=== PATIENT | male | born 1960 | race Caucasian/White ===

== ENCOUNTER 2018-05-26 09:14 | Emergency (ER) | payer OTHER ==
--- NOTE | 2018-05-26 09:31 | EDPHY ---
HPI/HX/ROS/PE/MDM Narrative: CHIEF COMPLAINT: Vomiting, abdominal pain. HPI: This patient is a 57 year old male with history of chronic pancreatitis, esophageal varices. He complains of two days of nausea and vomiting. He endorses associated abdominal pain, diarrhea. This morning he had an episode of coffee ground emesis. He denies hematochezia or melena. The patient states his symptoms are similar to prior episodes of pancreatitis. He denies any recent alcohol use. He has been unable to follow up at the [facility] due to difficulty scheduling an appointment. No chest pain, shortness of breath, fever, or other associated symptoms. REVIEW OF SYSTEMS: A comprehensive 10 system review of systems is otherwise negative aside from elements mentioned in the history of present illness and medical decision making. PMH: Chronic pancreatitis secondary to history of alcohol abuse. Esophageal varices. Hepatitis C. History of TIA. SOCIAL HISTORY: Generally follows up at [facility]. . Recently moved from [place]. PHYSICAL EXAM: General:Patient is alert, in no acute distress. ENT:Eyes are normal to inspection. ENT inspection normal. Neck: Normal inspection. Full range of motion. Respiratory:No respiratory distress. Breath sounds normal bilaterally. Cardiovascular: Regular rate and rhythm. Strong peripheral pulses. Normal cap refill. Abdomen:The abdomen is diffusely tender. There are no peritoneal signs. There are normal bowel sounds. Back: Normal to inspection. No tenderness to palpation. Skin: Normal color. No rash. Warm and dry. Extremities: Normal appearance. Full range of motion. Neuro: Oriented x3. Normal motor function. Normal sensory function. ED Course: 57 y/o male with history of chronic pancreatitis and esophageal varices presents with two day history of vomiting and abdominal pain with an episode of reported coffee-ground emesis this morning. Plan for labs including CBC, chemistries, liver, lipase, coag panel, type and screen. IV established. Plan to administer 1mg IV Dilaudid, 4mg IV Zofran, 1L IV NS for symptom relief. Laboratory studies largely unremarkable. Reassessed patient. He is feeling improved following fluids and medication administration. He has tolerated a PO challenge. Discussed laboratory results. Plan to discharge home in good condition with prescription for Zofran for nausea. Follow up and return precautions discussed. He is comfortable with this plan. MDM: This patient presents with recurrent epigastric pain that feels like recurrence of chronic pancreatitis. I see no signs of active GI bleed. Lipase is normal. Patient is now tolerating PO without difficulty. He has asked for a prescription for pain medication, but we discussed fact that he would need to return to ED if pain returns as this may be sign of serious disease. He declined further testing. - Data Points Laboratory Results: Laboratory Results 05/26/18 09:55 05/26/18 09:55 05/26/18 05/26/18 05/26/18 09:55 09:55 09:55 WBC RBC Hgb Hct MCV MCH MCHC RDW Plt Count MPV Neut % (Auto) Lymph % (Auto) [place] % (Auto) Eos % (Auto) Baso % (Auto) Nucleat RBC Rel Count Absolute Neuts (auto) Absolute Lymphs (auto) Absolute Monos (auto) Absolute Eos (auto) Absolute Basos (auto) Absolute Nucleated RBC Immature Gran % Immature Gran # PT 13.4 SEC SEC (12.0-15.0) INR 1.00 (0.83-1.16) APTT 30.8 SEC SEC (23.0-38.0) Sodium 135 mEq/L mEq/L (135-145) Potassium 4.3 mEq/L mEq/L (3.5-5.2) Chloride 104 mEq/L mEq/L (97-110) Carbon Dioxide 22 mEq/l mEq/l (22-31) Anion Gap 9 mEq/L mEq/L (6-14) BUN 12 mg/dL mg/dL (7-23) Creatinine 0.7 mg/dL mg/dL (0.7-1.3) Estimated GFR > 60 Glucose 97 mg/dL mg/dL (70-100) Calcium 9.4 mg/dL mg/dL (8.5-10.4) Total Bilirubin 0.5 mg/dL mg/dL (0.1-1.4) Conjugated Bilirubin 0.4 mg/dL mg/dL (0.0-0.5) Unconjugated Bilirubin 0.1 mg/dL mg/dL (0.0-1.1) AST 47 IU/L IU/L (17-59) ALT 49 IU/L IU/L (21-72) Alkaline Phosphatase 119 IU/L IU/L (38-126) Total Protein 8.6 g/dL H g/dL (6.3-8.2) Albumin 4.5 g/dL g/dL (3.5-5.0) Lipase 144 IU/L IU/L (23-300) Patient ABO/Rh O NEGATIVE Antibody Screen NEGATIVE 05/26/18 09:55 WBC 12.01 10^3/uL H 10^3/uL (3.80-9.50) RBC 4.39 10^6/uL L 10^6/uL (4.40-6.38) Hgb 12.8 g/dL L g/dL (13.7-17.5) Hct 38.3 % L % (40.0-51.0) MCV 87.2 fL fL (81.5-99.8) MCH 29.2 pg pg (27.9-34.1) MCHC 33.4 g/dL g/dL (32.4-36.7) RDW 13.5 % % (11.5-15.2) Plt Count 377 10^3/uL 10^3/uL (150-400) MPV 8.0 fL L fL (8.7-11.7) Neut % (Auto) 72.7 % % (39.3-74.2) Lymph % (Auto) 15.5 % % (15.0-45.0) [place] % (Auto) 10.3 % % (4.5-13.0) Eos % (Auto) 0.9 % % (0.6-7.6) Baso % (Auto) 0.3 % % (0.3-1.7) Nucleat RBC Rel Count 0.0 % % (0.0-0.2) Absolute Neuts (auto) 8.72 10^3/uL H 10^3/uL (1.70-6.50) Absolute Lymphs (auto) 1.86 10^3/uL 10^3/uL (1.00-3.00) Absolute Monos (auto) 1.24 10^3/uL H 10^3/uL (0.30-0.80) Absolute Eos (auto) 0.11 10^3/uL 10^3/uL (0.03-0.40) Absolute Basos (auto) 0.04 10^3/uL 10^3/uL (0.02-0.10) Absolute Nucleated RBC 0.00 10^3/uL 10^3/uL (0-0.01) Immature Gran % 0.3 % % (0.0-1.1) Immature Gran # 0.04 10^3/uL 10^3/uL (0.00-0.10) PT INR APTT Sodium Potassium Chloride Carbon Dioxide Anion Gap BUN Creatinine Estimated GFR Glucose Calcium Total Bilirubin Conjugated Bilirubin Unconjugated Bilirubin AST ALT Alkaline Phosphatase Total Protein Albumin Lipase Patient ABO/Rh Antibody Screen Medications Given: Discontinued Medications Hydromorphone HCl (Dilaudid) 1 mg IVP EDNOW ONE Stop: 05/26/18 10:11 Last Admin: 05/26/18 10:26 Dose: 1 mg Sodium Chloride (Ns) 1,000 mls @ 0 mls/hr IV EDNOW ONE; Wide Open PRN Reason: Protocol Stop: 05/26/18 09:49 Last Admin: 05/26/18 10:25 Dose: 1,000 mls Ondansetron HCl (Zofran) 4 mg IVP EDNOW ONE Stop: 05/26/18 10:11 Last Admin: 05/26/18 10:26 Dose: 4 mg General Time Seen by Provider: 05/26/18 09:24 Initial Vital Signs: Initial Vital Signs Temperature (C) 36.7 C 05/26/18 09:18 Heart Rate 104 H 05/26/18 09:18 Respiratory Rate 18 05/26/18 09:18 Blood Pressure 121/82 H 05/26/18 09:18 O2 Sat (%) 98 05/26/18 09:18 O2 Delivery Mode Room Air O2 (L/minute) 2 Allergies/Adverse Reactions: paroxetine [From Paxil] Allergy (Verified 05/27/18 11:36) propofol Allergy (Verified 05/27/18 11:36) Home Medications: Medication Instructions Recorded Ondansetron Odt [Zofran Odt] 4 mg PO Q4PRN PRN #10 tab 05/26/18 Albuterol [Proventil Inhaler HFA 2 puffs IH Q4 PRN #1 mdi 05/27/18 (*)] Ibuprofen 400 mg PO Q6 PRN #20 tablet 05/27/18 Ondansetron Odt [Zofran Odt 4 mg 4 mg PO Q8 PRN #10 tab 05/27/18 (*)] Departure - Departure Disposition: Home, Routine, Self-Care Clinical Impression: Abdominal pain, Nausea & vomiting Condition: Good Instructions: Acute Nausea and Vomiting (ED), Abdominal Pain (ED) Additional Instructions: Take Zofran as prescribed as needed for nausea. Follow up with your primary care provider . Return for uncontrollable vomiting or diarrhea, high fever, blood in your emesis or stool, or other worsening of condition. Referrals: Nicole Son MD [Medical Doctor] - As per Instructions Prescriptions: Ondansetron Odt [Zofran Odt] 4 mg PO Q4PRN PRN #10 tab PRN Reason: Nausea Report Scribed for: Cezar Jacobs Report Scribed by: Mona Parks Date of Report: 05/26/18 Time of Report: 10:04 Physician Review and Approval Statement: Portions of this note were transcribed by an ED scribe. I personally performed the history, physical exam, and medical decision making; and confirm the accuracy of the information in the transcribed note.
[2018-05-26] MEDS ORDERED: NS 1,000 ML IV ONE (09:48)
[2018-05-26 10:00] LABS: PLATELET COUNT 377 10^3/uL (150-400)
[2018-05-26] MEDS ORDERED: HYDROmorphONE/DILAUDID 2 MG/ML INJ IVP ONE (10:10)
[2018-05-26] MEDS ORDERED: ONDANSETRON 4 MG/2 ML VIAL IVP ONE (10:10)
[2018-05-26 10:14] LABS: PROTIME(PATIENT) 13.4 SEC (12.0-15.0)
[2018-05-26 12:54] VITALS: BP 139/72
== END 2018-05-26 12:52 | disposition home or self-care (01) ==
DX: R10.0 Acute abdomen (principal); R11.2 Nausea with vomiting, unspecified; K86.1 Other chronic pancreatitis; E86.9 Volume depletion, unspecified
CPT/HCPCS: 96361; 96374; 96375; 99284; J1170; J2405

== ENCOUNTER 2018-05-27 11:33 | Emergency (ER) | payer OTHER ==
--- NOTE | 2018-05-27 12:24 | EDPHY ---
General - History Smoking Status: Heavy smoker Time Seen by Provider: 05/27/18 12:00 Narrative: CLINICAL IMPRESSION: Shortness of breath, cough, abdominal pain, nausea, vomiting, diarrhea ASSESSMENT/PLAN: Patient is a 57-year-old male with a significant history of TIA, coronary artery disease, peripheral neuropathy, esophageal varices and alcohol-induced pancreatitis who presents to the emergency department with escalating and worsening nausea, vomiting, abdominal pain, cough and shortness of breath. Patient is afebrile, in mild distress however not toxic appearing. An ECG was obtained and revealed normal sinus rhythm, no evidence of acute ischemia. His abdomen was soft, generalized upper abdominal tenderness, most tender in the epigastrium without peritoneal signs. CBC revealed mild leukocytosis, improved from previous visit. BMP revealed no significant metabolic abnormality or evidence of a KI. Lipase and hepatic panel grossly unremarkable, no evidence of acute pancreatitis or acute hepatobiliary obstruction. D-dimer elevated at 0.8 , troponin negative. Chest x-ray with findings suggestive of airway disease, no consolidation. CT a chest without evidence of PE, findings suggestive of underlying emphysema without other acute findings. CT abdomen and pelvis revealed constipation, no findings to suggest acute pancreatitis or other acute intra-abdominal process. Overall the patient had a very extensive workup in the emergency department that was very reassuring. I suspect his shortness of breath secondary to a viral illness, there was no evidence of PE, ACS or pneumonia. He was given an albuterol neb with improvement of his symptoms. In regards to his abdominal pain, nausea, vomiting and diarrhea I also suspect that this is viral in nature. There were no clinical findings to suggest appendicitis, cholecystitis , kidney stone, pancreatitis, perforated viscus, diverticulitis, testicular torsion, epididymitis, hernia, AAA, mesenteric ischemia, or additional emergent intra-abdominal process. He was given IV fluids and narcotic with improvement of his symptoms. He was initially noted to have a mildly elevated heart rate which normalized to 89 prior to discharge. No findings to suggest sepsis or serious bacterial illness. On repeat examination the patient is much more comfortable appearing, he is very reassured by his workup. [facility] and understands the importance of close follow-[facility]. Strict return precautions discussed- he will return for increased or unmanageable pain, increased shortness of breath, fever, worsening or localized abdominal pain, chest pain, or for any other new, worsening or worrisome symptoms. Patient verbalizes understanding and he is in agreement with this plan. DIFFERENTIAL DX: Abdominal pain including but not limited to appendicitis, cholecystitis, gastritis and urinary tract infection. ED COURSE: 1218: Case discussed with Dr. Rivero CHIEF COMPLAINT: Fever, cough, shortness of breath, nausea, vomiting, diarrhea and abdominal pain HPI: Patient is a 57-year-old male with a significant history of TIA, coronary artery disease, peripheral neuropathy, esophageal varices and alcohol-induced pancreatitis who presents to the emergency department with escalating and worsening nausea, vomiting and abdominal pain. Patient reports that he was seen and evaluated yesterday for similar symptoms, has been unable to keep anything down is having worsening abdominal pain. Patient endorses subjective fever 2 nights ago, for the last 3 days he has had a cough and some increased shortness of breath. He states this feels similar to when he has had pneumonia in the past. He denies any earache, sore throat, runny nose or congestion. Patient also discloses abdominal pain for the last several days which feels very similar to when he has had exacerbations with his pancreatitis in the past. He describes it as sharp and constant. He has had associated nausea, he is unable to vomit secondary to not being able to keep anything down. He has had increased diarrhea over the last several days, no melena or hematochezia. Patient reports that he has not had alcohol since April 21. Patient denies any testicular pain or swelling, he has had no urinary symptoms. PMH: TIA, coronary artery disease, peripheral neuropathy, soft a CLOVIS varices, pancreatitis, alcohol abuse Family History: Noncontributory Social History: Current smoker, denies alcohol REVIEW OF SYSTEMS: All other systems negative Constitutional: Fever, decreased appetite Eyes: No discharge, vision change ENT: No sore throat, congestion, ear pain. Cardiovascular: No chest pain, no palpitations. Respiratory: Cough, shortness of breath. Gastrointestinal: Abdominal pain, nausea, vomiting, diarrhea Genitourinary: No hematuria, dysuria, flank pain, testicular pain. Musculoskeletal: No back pain, joint swelling, joint pain, myalgias. Skin: No rashes, color change. Neurological: No headache, dizziness, weakness. PHYSICAL EXAM: General Appearance: Elderly, tired appearing however not toxic-appearing. HENT: Normocephalic, atraumatic. Bilateral external ears are normal. Bilateral tympanic membranes are normal with pearly mendoza reflex. Nares are clear, mucosa is pink. Oropharynx is clear however mucosa is dry, uvula is midline. There is no tonsillar enlargement or exudate. Eyes: PERRLA, no acute vision change, nystagmus, swelling, discharge, pain or photosensitivity. Conjunctiva pink, no pallor or injection. Neck: Supple, nontender, no lymphadenopathy, no midline pain, FROM, no meningismus. Respiratory: There are no retractions, lungs are clear to auscultation. Cardiac: Regular rate and rhythm, no murmurs or gallops. Gastrointestinal: Abdomen is soft, bowel sounds normal, no masses/hernia; patient with tenderness to palpation in his generalized upper abdomen and epigastrium, no rigidity, guarding. Neurological: Alert and oriented x 3, CN 2-12 grossly intact, normal gait no ataxia, DTR's intact, normal sensation and strength Skin: Warm, dry, no rashes, no nodules on palpation. Musculoskeletal: Extremities are symmetrical, full range of motion, no tenderness, deformity, swelling, or erythema. Psychiatric: Patient is oriented X 3, there is no agitation. MEDICAL DECISION MAKING: Patient was seen independently. Secondary supervising physician at time of evaluation was Dr. Rivero. Diagnosis: Shortness of breath, cough, abdominal pain, nausea, vomiting, diarrhea. New, requires workup Summary: See Assessment and Plan for summary of ED visit Clinical lab tests: ordered / reviewed. Independent visualization of images, tracing, or specimens: Yes. Decision to obtain medical records or history from someone other than the patient: No Review / Summarize previous medical records: Yes Discussed patient with another provider: Yes, Dr. Rivero Patient Progress: Stable, discharged. (Lashonda Alan) Discussion: The patient was evaluated and managed by the Physician Fiscal Clerk. I discussed the patient's presentation and course with the physician internal medicine physician assistant and agree with the evaluation. My co-signature indicates that I have reviewed this chart and I agree with the findings and plan of care as documented. I am the secondary supervising physician. (Dinah Rivero) - Objective Vital Signs: Initial Vital Signs Temperature (C) 37 C 05/27/18 11:36 Heart Rate 104 H 05/27/18 11:36 Respiratory Rate 20 05/27/18 11:36 Blood Pressure 120/72 05/27/18 11:36 O2 Sat (%) 96 05/27/18 11:36 O2 Delivery Mode Room Air Allergies/Adverse Reactions: paroxetine [From Paxil] Allergy (Verified 05/27/18 11:36) propofol Allergy (Verified 05/27/18 11:36) Home Medications: Medication Instructions Recorded Ondansetron Odt [Zofran Odt] 4 mg PO Q4PRN PRN #10 tab 05/26/18 Albuterol [Proventil Inhaler HFA 2 puffs IH Q4 PRN #1 mdi 05/27/18 (*)] Ibuprofen 400 mg PO Q6 PRN #20 tablet 05/27/18 Ondansetron Odt [Zofran Odt 4 mg 4 mg PO Q8 PRN #10 tab 05/27/18 (*)] Laboratory Results: Laboratory Results 05/27/18 12:30 05/27/18 12:30 Medications Given: Discontinued Medications Albuterol/Ipratropium (Duoneb) 3 ml IH EDNOW ONE Stop: 05/27/18 13:49 Last Admin: 05/27/18 13:59 Dose: 3 ml Hydromorphone HCl (Dilaudid) 0.5 mg IVP EDNOW ONE Stop: 05/27/18 12:26 Last Admin: 05/27/18 12:54 Dose: 0.5 mg Sodium Chloride (Ns) 1,000 mls @ 0 mls/hr IV ONCE ONE PRN Reason: Wide Open Stop: 05/27/18 12:26 Last Admin: 05/27/18 12:46 Dose: 1,000 mls Ondansetron HCl (Zofran) 4 mg IVP Q4 PRN PRN Reason: Nausea/Vomiting, Can't Take PO Stop: 11/23/18 12:24 Last Admin: 05/27/18 12:45 Dose: 4 mg Point of Care Test Results: Chemistry 05/27/18 12:44 POC Sodium 139 mEq/L mEq/L (135-145) POC Potassium 3.7 mEq/L mEq/L (3.3-5.0) POC Chloride 104 mEq/L mEq/L (97-110) POC Total CO2 20 mEq/L L mEq/L (22-31) POC BUN 10 mg/dL mg/dL (7-23) POC Creatinine 0.6 mg/dL L mg/dL (0.7-1.3) POC Glucose 96 mg/dL mg/dL (70-100) ISTAT H&H 05/27/18 12:44 POC Hgb 12.2 gm/dL L gm/dL (13.7-17.5) POC Hct 36 % L % (40-51) Departure - Departure Disposition: Home, Routine, Self-Care Clinical Impression: Cough, Abdominal pain, Nausea & vomiting Condition: Good Instructions: Gastroenteritis (ED), Abdominal Pain (ED) Additional Instructions: DISCHARGE INSTRUCTIONS FROM YOUR DOCTOR Thank you for visiting our emergency department today. Please keep in mind that discharge from the emergency department does not mean that there is nothing wrong - it simply means that we have not identified an emergency condition that requires further evaluation or treatment in the hospital. You should always plan to follow up with primary care for re-evaluation of your condition in the next 2-3 days. Please use your inhaler as needed for your cough. Rest, push non-diuretic, non-caffeinated fluids, clear liquid diet, then a BRAT diet (bananas, rice, applesauce, toast), then slowly advance diet to normal. Attempt small frequent meals. Zofran as prescribed as needed for any recurrent nausea and/or vomiting. Schedule a follow-up appointment with your primary care physician in the next 1- 2 days for re-evaluation. Bring a copy of your test results with you to that appointment. For pain control: You may take Tylenol, I recommend 500-1000 mg every 6-8 hours as needed. Take with food and a full glass of water. Stop taking if this is upsetting her stomach. Do not exceed 4000 mg in a 24 hr period. You may also take ibuprofen, recommend 400 mg every 6 hr. Take with food and a full glass of water. Stop taking if this upsets her stomach. Do not exceed 2400 mg in a 24 hr period. Return for increased or unmanageable pain, new site or character of pain, flank pain, groin pain, pelvic pain, development of fever, chills, recurrent vomiting , vomiting blood or coffee grounds, diarrhea, constipation, bloody stools, black tarry stools, burning or pain with urination, bloody urine, inability to urinate, decreased urine output or other signs of dehydration, dizziness, weakness, fainting, difficulty breathing or swallowing, chest pain, or for any other new, worsening or worrisome symptoms. People present with illnesses and injuries in different ways, and it is always possible that we have missed something. You may always return for re-evaluation if symptoms worsen or if they are not improving or if you develop new/different symptoms. Again, thank you for choosing our emergency department. We hope that you feel better. [facility] has walk-in appointments for the homeless at the following days/locations. No appointment is needed. Thursday 8-10 am @ [facility] 11 AM-1 PM @ [facility] Thursday 8-10:30 AM @ [facility] Thursday 8-10 AM @ [facility] 2-4 PM @ [facility] Thursday 8-10 AM @ [facility] Referrals: Reggie Damian MD [Medical Doctor] - As per Instructions (Please establish care with a primary care provider if you have not done so) Prescriptions: Albuterol [Proventil Inhaler HFA (*)] 2 puffs IH Q4 PRN #1 mdi PRN Reason: Short Of Breath/Dyspnea Ibuprofen 400 mg PO Q6 PRN #20 tablet PRN Reason: Pain, Moderate Ondansetron Odt [Zofran Odt 4 mg (*)] 4 mg PO Q8 PRN #10 tab PRN Reason: Nausea/Vomiting, Can'T Take Po
[2018-05-27] MEDS ORDERED: HYDROmorphONE/DILAUDID 2 MG/ML INJ IVP ONE (12:25)
[2018-05-27] MEDS ORDERED: NS 1,000 ML IV ONE (12:25)
[2018-05-27] MEDS ORDERED: ONDANSETRON 4 MG/2 ML VIAL IVP PRN (12:25)
[2018-05-27] MEDS ORDERED: IOHEXOL 300 mgI/ML (OMNIPAQUE) 150 ML BTL IV ONE ×2 (12:43→14:17)
[2018-05-27] MEDS ORDERED: HYDROmorphONE/DILAUDID 1 MG/ML INJ ONE (12:44)
[2018-05-27 12:56] LABS: PLATELET COUNT 339 10^3/uL (150-400)
[2018-05-27] MEDS ORDERED: IPRATROPIUM/ALBUTEROL 3 ML DEYVIAL IH ONE (13:48)
--- NOTE | 2018-05-27 15:25 | CPEKG ---
Test Reason : OPEN Blood Pressure : / mmHG Vent. Rate : 080 BPM Atrial Rate : 080 BPM P-R Int : 160 ms QRS Dur : 081 ms QT Int : 360 ms P-R-T Axes : 074 083 074 degrees QTc Int : 416 ms Sinus rhythm Confirmed by Dinah Rivero ([id number]) on 05/27/2018 3:24:47 PM Referred By: Dinah Rivero Confirmed By:Dinah Rivero
[2018-05-27 15:26] VITALS: BP 106/80
== END 2018-05-27 15:26 | disposition home or self-care (01) ==
DX: R11.2 Nausea with vomiting, unspecified (principal); R05 Cough; R06.02 Shortness of breath; R10.9 Unspecified abdominal pain; I25.10 Atherosclerotic heart disease of native coronary artery without angina pectoris; F17.200 Nicotine dependence, unspecified, uncomplicated; G62.9 Polyneuropathy, unspecified; Z86.73 Personal history of transient ischemic attack (TIA), and cerebral infarction without residual deficits
CPT/HCPCS: 71046; 71275; 74177; 93005; 96361; 96374; 96375; 99285; J1170; J2405; Q9967; 82435-PO; 82565-PO; 82947-PO; 84132-PO; 84295-PO; 84520-PO; 85014-ER